=== PATIENT | female | born 1995 | race Hispanic/Latino ===

== ENCOUNTER 2025-02-05 11:13 | Emergency (ER) | payer BC ==
--- NOTE | 2025-02-05 11:45 | EDPHYS ---
Physician Documentation [facility] Name: Annamaria Johnson Age: 29 yrs Sex: Female : 1995 Arrival Date: 02/05/2025 Time: 11:13 Bed DX3 Private MD: ED Physician Wilfred Wright HPI: 02/05 11:44 This 29 yrs old Female presents to ER via Ambulatory with complaints of ms3 ingrown toenails. 11:44 29-year-old female with past medical history of heart murmur presents to the emergency ms3 department for ingrown toenails. Patient states her left third toe has had an ingrown toenail for a long time and her right toe has been hurting for 3 days and she is unable to cut it out. She states this is very uncomfortable. She denies any alleviating factors.. Historical: - Allergies: 11:28 No Known Allergies; iw - Home Meds: 11:28 None [Active]; iw - PMHx: 11:28 Heart Murmur; iw - PSHx: 11:28 None; iw - Immunization history:: Adult Immunizations not up to date. - Infectious Disease History:: Denies. - Social history:: Smoking status: Patient denies any tobacco usage or history of. ROS: 11:44 Constitutional: Negative for fever, and chills. Cardiovascular: Negative for chest ms3 pain, and palpitations. Respiratory: Negative for shortness of breath, cough, wheezing, and pleuritic chest pain, Abdomen/GI: Negative for abdominal pain, nausea, vomiting, diarrhea, and constipation, 11:44 Skin: Positive for erythema, Right great toe, Exam: 11:44 Constitutional: This is a well developed, well nourished patient who is awake, alert, ms3 and in no acute distress. Cardiovascular: Regular rate and rhythm with a normal S1 and S2. No gallops, murmurs, or rubs. Normal PMI, no JVD. No pulse deficits. Respiratory: Lungs have equal breath sounds bilaterally, clear to auscultation and percussion. No rales, rhonchi or wheezes noted. No increased work of breathing, no retractions or nasal flaring. Abdomen/GI: Soft, non-tender, with normal bowel sounds. No distension or tympany. No guarding or rebound. No evidence of tenderness throughout. 11:44 Musculoskeletal/extremity: Right great toe with scabbing of medial surface, swelling, erythema. Left third toe with mild erythema. Vital Signs: 11:26 BP 114 / 76; Pulse 68; Resp 16; Pulse Ox 100% on R/A; Weight 68.04 kg; Height 5 ft. 0 iw in. ; Pain 4/10; 11:26 Body Mass Index 29.29 (68.04 kg, 152.4 cm) iw 11:26 Pain Scale: Adult iw MDM: 11:43 Medical Screening Exam initiated ms3 11:44 Differential diagnosis: cellulitis, Ingrown toenail. Data reviewed: vital signs, nurses ms3 notes, and as a result, I will discharge patient. I considered the following discharge prescriptions or medication management in the emergency department See prescription. Historians other than the Patient: Patient's mother. Counseling: I had a detailed discussion with the patient and/or guardian regarding the historical points, exam findings, and any diagnostic results supporting the discharge/admit diagnosis, the need for outpatient follow up, to return to the emergency department if symptoms worsen or persist or if there are any questions or concerns that arise at home. Special discussion: I discussed with the patient/guardian in detail that at this point there is no indication for admission to the hospital. It is understood, however, that if the symptoms persist or worsen the patient needs to return immediately for re-evaluation. ED course: Discussed physical exam findings with patient and her mother. Patient given prescription for antibiotics. Patient to follow-up with Dr. Ruvalcaba in 2 to 3 days. Patient understands and agrees with plan. All questions were answered. Return precautions discussed include worsening symptoms, or any other concerns. Administered Medications: 11:58 Drug: Trimethoprim-Sulfamethoxazole PO (160 mg-800 mg (DS) 1 tablet PO once Route: PO; iw 11:59 Follow up: Response: No adverse reaction iw Disposition Summary: 02/05/25 11:44 Discharge Ordered Notes: Location: Home ms3 Condition: Stable ms3 Diagnosis - Pain in left toe(s) ms3 - Pain in right toe(s) ms3 - Cellulitis of right toe ms3 Followup: ms3 - With: Stanton Ruvalcaba DPM - When: 2 - 3 days - Reason: Recheck today's complaints Discharge Instructions: - Discharge Summary Sheet ms3 - Cellulitis, Adult ms3 - Foot Pain ms3 Forms: - School release form ms3 - Work release form ms3 - Medication Reconciliation Form ms3 - Antibiotic Education ms3 - Prescription Opioid Use ms3 - Patient Portal Instructions ms3 - Leadership Thank You Letter ms3 Prescriptions: - Bactrim DS 800-160 mg Oral tablet - take 1 tablet ORAL route every 12 hours for 5 days; 10 tablet; Refills: 0, ms3 Product Selection Permitted Signatures: Lenora Elizabeth RN RN iw Wilfred Wright DO DO ms3
--- NOTE | 2025-02-05 11:45 | ER ---
Nurse's Notes [facility] Name: Annamaria Johnson Age: 29 yrs Sex: Female : 1995 Arrival Date: 02/05/2025 Time: 11:13 Bed DX3 Private MD: Diagnosis: Pain in left toe(s);Pain in right toe(s);Cellulitis of right toe Presentation: 02/05 11:26 Chief complaint: Patient states: has an ingrown toenail on right great toe for a while, iw started hurting Tuesday , there is pus and it's inflamed. Coronavirus screen: At this time, the client does not indicate any symptoms associated with coronavirus-19. Ebola Screen: No symptoms or risks identified at this time. Initial Sepsis Screen: Does the patient meet any 2 criteria? No. Patient's initial sepsis screen is negative. Does the patient have a suspected source of infection? No. Patient's initial sepsis screen is negative. Risk Assessment: Do you want to hurt yourself or someone else? Patient reports no desire to harm self or others. 11:26 Method Of Arrival: Ambulatory iw 11:26 Acuity: YA 4 Triage Assessment: 11:30 General: Appears in no apparent distress. Behavior is calm, cooperative. iw Historical: - Allergies: 11:28 No Known Allergies; iw - Home Meds: 11:28 None [Active]; iw - PMHx: 11:28 Heart Murmur; iw - PSHx: 11:28 None; iw - Immunization history:: Adult Immunizations not up to date. - Infectious Disease History:: Denies. - Social history:: Smoking status: Patient denies any tobacco usage or history of. Screenin:30 [facility] ED Fall Risk Assessment (Adult) History of falling in the last 3 months, iw including since admission No falls in past 3 months (0 pts) Confusion or Disorientation No (0 pts) Intoxicated or Sedated No (0 pts) Impaired Gait No (0 pts) Mobility Assist Device Used No (0 pt) Altered Elimination No (0 pt) Score/Fall Risk Level 0 - 2 = Low Risk Oriented to surroundings, Maintained a safe environment. Abuse screen: Denies threats or abuse. Denies injuries from another. Nutritional screening: No deficits noted. Tuberculosis screening: No symptoms or risk factors identified. Assessment: 11:30 General: Appears in no apparent distress. Behavior is calm, cooperative. Pain: iw Complains of pain in Right first toenail. Neuro: Level of Consciousness is awake, alert, obeys commands, Oriented to person, place, time, situation, Moves all extremities. Cardiovascular: Patient's skin is warm and dry. Respiratory: Respiratory effort is even, unlabored, Respiratory pattern is regular, symmetrical. Derm: Skin is intact. Musculoskeletal: Range of motion: intact in all extremities. Vital Signs: 11:26 BP 114 / 76; Pulse 68; Resp 16; Pulse Ox 100% on R/A; Weight 68.04 kg; Height 5 ft. 0 iw in. ; Pain 410; 11:26 Body Mass Index 29.29 (68.04 kg, 152.4 cm) iw 11:26 Pain Scale: Adult iw ED Course: 11:15 Patient arrived in ED. im 11:28 Triage completed. iw 11:29 Arm band placed on. iw 11:30 Patient has correct armband on for positive identification. Provided Education on: . iw 11:37 Wilfred Wright DO is Attending Physician. ms3 11:44 Stanton Ruvalcaba DPM is Referral Physician. ms3 11:50 No provider procedures requiring assistance completed. Patient did not have IV access iw during this emergency room visit. 11:52 Lenora Elizabeth, RADHA is Primary Nurse. iw Administered Medications: 11:58 Drug: Trimethoprim-Sulfamethoxazole PO (160 mg-800 mg (DS) 1 tablet PO once Route: PO; iw 11:59 Follow up: Response: No adverse reaction iw Medication: 11:30 VIS not applicable for this client. iw Outcome: 11:44 Discharge ordered by . ms3 11:58 Discharged to home ambulatory, with family, iw 11:58 Condition: good 11:58 Discharge instructions given to patient, family, Instructed on discharge instructions, follow up and referral plans. medication usage, Demonstrated understanding of instructions, follow-up care, medications, Prescriptions given X 1, 11:59 Patient left the ED. iw Signatures: Lenora Elizabeth, RN RN iw Wilfred Wright DO DO ms3 Kerr, Mirna im
[2025-02-05] MEDS ORDERED: SMZ./TMP. 800/160 MG TABLET ONE (11:48)
[2025-02-05 13:45] VITALS: BP 114/76; O2SAT 100
== END 2025-02-05 11:59 | disposition home or self-care (01) ==
LOC: ER 11:13
DX: L03.031 Cellulitis of right toe (principal); M79.675 Pain in left toe(s)
CPT/HCPCS: 99283